=== PATIENT | female | born 1955 ===

== ENCOUNTER 2020-01-09 07:26 | Day surgery (SDC) | payer OTHER ==
[~2020-01-09 07:26] MED LIST: CLONAZEPAM1 MG PO; FOSAMAX70 MG PO; GLIPIZIDE XL5 MG PO; HUMALOG100 UNIT/2; LANTUS SOL100 UNIT/1; SIMVASTATIN80 MG PO; SYNTHROID50 MCG PO; ZESTRIL40 M1 PO
[2020-01-09] MEDS ORDERED: ULTRACET PO (11:36)
[2020-01-09] MEDS ORDERED: KETO10TA2 PO (11:37)
[2020-01-09] MEDS ORDERED: RECTICARE30 GM TOP (11:37)
== END 2020-01-09 15:30 | disposition home or self-care (01) ==
LOC: CIR.AMB 07:26 → ADM 08:00 → CIR.AMB 10:45
PROVIDERS: ATTEND Surgery
DX: K64.8 Other hemorrhoids (principal); K64.4 Residual hemorrhoidal skin tags; K64.3 Fourth degree hemorrhoids; K64.2 Third degree hemorrhoids; N81.6 Rectocele; R32 Unspecified urinary incontinence